=== PATIENT | female | born 1955 | race Caucasian/White ===

== ENCOUNTER → 2017-07-24 10:13 | Outpatient (CLI) | payer OTHER, SELFPAY ==
[2015-08-06 13:35] VITALS: BP 114/56
[2017-05-27 08:24] VITALS: BP 111/74; BMI 30.2
[2017-07-24 12:22] LABS: Hematocrit 41.6 % (37-47); Hemoglobin 13.4 g/dl (12.0-15.0); Mean Corp Hgb Conc 32.2 g/gl (32-36); Mean Corpuscular Hgb 30.9 pg (27.0-32.0); Mean Corpuscular Volume 96.1 fL (81-99); Mean Platelet Vol. 11.4 fl (6.2-12.0); Platelet Count 189 K/mm3 (150-450); RBC Distribution Width CV 13.6 % (11.6-14.6); RBC Distribution Width SD 47.8 fl (35.1-43.9); Red Blood Count 4.33 M/mm3 (4.2-5.4)
[2017-07-24 12:29] LABS: Scan Indicated on CBC? Y/N NO
[2017-07-24 12:43] LABS: Erythrocyte Sedimentation Rate 5 mm/hr (0-30)
[2017-07-24 13:20] LABS: ALB/GLOB Ratio 1.2 RATIO (0.9-2.4); AST(SGOT) 20 U/L (15-37); Alanine Aminotransfer ALT/SGPT 26 U/L (13-56); Albumin, Serum 3.8 g/dL (3.2-5.0); Alkaline Phosphatase 60 U/L (45-117); Anion Gap 7 (5-15); BUN 16 mg/dL (7-18); BUN/Creat Ratio 18.2 RATIO (10-20); Calcium,Total 8.7 mg/dL (8.5-10.1); Chloride 103 mmol/L (98-107); Creatinine, Serum 0.88 mg/dL (0.55-1.02); EST Glomerular Filtration Rate 70 mL/min (>60); Est Glom Filt Rate - Afr Amer 84 mL/min (>60); Globulin 3.2 g/dL (2.2-4.2); Glucose 94 mg/dL (74-106); Potassium 4.2 mmol/L (3.5-5.1); Sodium Level 138 mmol/L (136-145); T4 Free Direct 1.04 ng/dL (0.76-1.46); Thyroid Stim Hormone (TSH) 0.38 uIU/mL (0.358-3.74)
[2017-07-24 13:39] LABS: Vitamin B12 401 pg/mL (211-911)
== END ==
PROVIDERS: Family Provider Family Medicine; PCP Family Medicine; Visit Provider Family Medicine
DX: Z13.21 Encounter for screening for nutritional disorder (principal); E53.8 Deficiency of other specified B group vitamins; E03.9 Hypothyroidism, unspecified; K58.9 Irritable bowel syndrome, unspecified; F10.20 Alcohol dependence, uncomplicated
CPT/HCPCS: 36415; 80053; 82306; 82607; 84439; 84443; 85027; 85652

== ENCOUNTER → 2017-12-21 07:42 | Outpatient (CLI) | payer OTHER, SELFPAY ==
[2017-12-21 10:28] LABS: Vitamin B12 931 pg/mL (211-911); Vitamin D,25 Hydroxy 49.6 ng/mL (29.95-100.01)
[2017-12-21 10:35] LABS: T4 Free Direct 1.06 ng/dL (0.76-1.46); Thyroid Stim Hormone (TSH) 0.08 uIU/mL (0.358-3.74)
[2017-12-24 08:17] LABS: Vitamin D 1,25-Dihydroxy 74.2 pg/mL (19.9-79.3)
== END ==
PROVIDERS: Family Provider Family Medicine; PCP Family Medicine; Visit Provider Family Medicine
DX: E55.9 Vitamin D deficiency, unspecified (principal); E03.9 Hypothyroidism, unspecified
CPT/HCPCS: 36415; 82306; 82607; 82652; 84439; 84443

== ENCOUNTER → 2018-03-30 14:11 | Outpatient (CLI) | payer OTHER, SELFPAY ==
[2018-03-30 15:46] LABS: Vitamin B12 655 pg/mL (211-911)
[2018-03-30 15:49] LABS: Free T3 2.6 pg/mL (2.18-3.98); T4 Free Direct 1.26 ng/dL (0.76-1.46); Thyroid Stim Hormone (TSH) 0.02 uIU/mL (0.358-3.74)
== END ==
PROVIDERS: Family Provider Family Medicine; PCP Family Medicine; Referring Provider Family Medicine; Visit Provider Family Medicine
DX: E03.9 Hypothyroidism, unspecified (principal); E53.8 Deficiency of other specified B group vitamins
CPT/HCPCS: 36415; 82607; 84439; 84443; 84481

== ENCOUNTER → 2018-10-05 14:26 | Outpatient (CLI) | payer OTHER, SELFPAY ==
[2017-05-27 08:24] VITALS: BMI 30.2
[2018-10-05 17:52] LABS: Thyroid Stim Hormone (TSH) 1.56 uIU/mL (0.358-3.74)
== END ==
PROVIDERS: Family Provider Family Medicine; PCP Family Medicine; Referring Provider Family Medicine; Visit Provider Family Medicine
DX: E03.9 Hypothyroidism, unspecified (principal)
CPT/HCPCS: 36415; 84443

== ENCOUNTER → 2018-10-18 13:37 | Outpatient (CLI) | payer OTHER, SELFPAY ==
[2017-05-27 08:24] VITALS: BMI 30.2
[2018-10-18 15:38] LABS: Erythrocyte Sedimentation Rate 4 mm/hr (0-30)
[2018-10-18 15:41] LABS: Absolute Lymphocyte Count 2.27 X10^3/ul (0.83-4.51); Absolute Neutrophil Count 6.8 X10^3/uL (2.0-7.7); Basophil# 0.05 X10^3/uL; Basophil% 0.5 % (0-1); Eosinophil# 0.14 X10^3/uL; Eosinophils% 1.4 % (0-5); Hematocrit 41.2 % (37-47); Hemoglobin 13.5 g/dl (12.0-15.0); Lymphocyte # 2.27 X10^3/ul (4.0); Lymphocyte % 23.1 % (19-41); Mean Corp Hgb Conc 32.8 g/gl (32-36); Mean Corpuscular Hgb 31.4 pg (27.0-32.0); Mean Corpuscular Volume 95.8 fL (81-99); Mean Platelet Vol. 10.8 fl (6.2-12.0); Monocyte# 0.53 X10^3/uL; Monocyte% 5.4 % (0-10); Neutrophil # 6.79 X10^3/uL (2.7-7.7); Neutrophil % 69.3 % (47-70); Platelet Count 212 K/mm3 (150-450); RBC Distribution Width CV 12.8 % (11.6-14.6); RBC Distribution Width SD 43.1 fl (35.1-43.9); White Blood Count 9.8 K/mm3 (4.4-11.0)
[2018-10-18 15:42] LABS: POSITIVE COUNT NO; POSITIVE DIFFERENTIAL NO; POSITIVE MORPHOLOGY NO
[2018-10-18 15:57] LABS: ALB/GLOB Ratio 1.4 RATIO (0.9-2.4); AST(SGOT) 30 U/L (15-37); Alanine Aminotransfer ALT/SGPT 28 U/L (13-56); Albumin, Serum 4.1 g/dL (3.2-5.0); Alkaline Phosphatase 90 U/L (45-117); BUN 24 mg/dL (7-18); Calcium,Total 8.8 mg/dL (8.5-10.1); Chloride 102 mmol/L (98-107); Creatinine, Serum 0.86 mg/dL (0.55-1.02); EST Glomerular Filtration Rate 71 mL/min (>60); Est Glom Filt Rate - Afr Amer 86 mL/min (>60); Glucose 85 mg/dL (74-106); Protein, Total 7.1 g/dL (6.4-8.2); Sodium Level 135 mmol/L (136-145)
[2018-10-18 15:58] LABS: Anion Gap 5 (5-15)
[2018-10-20 22:07] LABS: Endomysial Antibody IgA Negative (Negative)
[2018-10-21 15:53] LABS: Deamidated Gliadin IgA 3 units (0-19); Deamidated Gliadin IgG 2 units (0-19); Immunoglobulin A 143 mg/dL (87-352); t-Transglutaminase IgA <2 U/mL (0-3)
[2018-10-28 03:06] LABS: Beef <0.10 kU/L (Class 0); Corn <0.10 kU/L (Class 0); Egg, Whole <0.10 kU/L (Class 0); Milk (Cow) <0.10 kU/L (Class 0); Peanut <0.10 kU/L (Class 0); Pork <0.10 kU/L (Class 0); Soybean <0.10 kU/L (Class 0); Wheat <0.10 kU/L (Class 0)
[2018-10-28 14:21] LABS: Chocolate <0.10 kU/L (Class 0)
== END ==
PROVIDERS: Family Provider Family Medicine; PCP Family Medicine; Referring Provider Family Medicine; Visit Provider Family Medicine
DX: K58.9 Irritable bowel syndrome, unspecified (principal)
CPT/HCPCS: 36415; 80053; 82784; 83516; 85025; 85652; 86003; 86005; 86255

== ENCOUNTER → 2018-10-25 14:05 | Outpatient (CLI) | payer OTHER, SELFPAY ==
[2017-05-27 08:24] VITALS: BMI 30.2
== END ==
PROVIDERS: Family Provider Family Medicine; PCP Family Medicine; Referring Provider Family Medicine; Visit Provider Family Medicine
DX: K58.9 Irritable bowel syndrome, unspecified (principal)
CPT/HCPCS: 82274; 83630; 87177; 87209; 87493

== ENCOUNTER → 2019-04-08 13:51 | Outpatient (CLI) | payer OTHER, SELFPAY ==
--- NOTE | 2019-04-08 13:56 | BI_ITS ---
MAMMOGRAPHY - BILATERAL DIAGNOSTIC REASON FOR EXAM: Female, 63 years old. Lower outer quadrant pain in the right breast. PERTINENT HISTORY: Mother with breast cancer. TECHNIQUE: Digital bilateral breast irma (3D mammographic acquisition) in the CC and MLO projections. 2-D mediolateral oblique (MLO) and craniocaudad (CC) views of both breasts were obtained. CAD: Full Field Digital Mammography with Computer Added Detection was performed. COMPARISON: Comparison is made with prior examination dated October 19, 2012. FINDINGS: Breast Composition: There are scattered areas of fibroglandular density. There are no dominant masses or suspicious calcifications. No other significant abnormalities are identified. There has been no significant change since the prior study. BI/DIAG MAMM W/CAD, BILAT IMPRESSION: Stable bilateral diagnostic mammogram. With the patient's history of pain in the lower outer quadrant of the right breast, correlation with ultrasound is recommended. ASSESSMENT CATEGORY: BIRADS Category 0: Incomplete. Need additional imaging evaluation. A letter regarding these results will be sent to the patient by the facility within 30 days. Approximately 10% of breast cancers are not detected by mammography. A normal mammogram should not delay biopsy of a clinically suspicious abnormality. Electronically Signed: Rock Hernandez, at 8:34 EDT , Service support ,
--- NOTE | 2019-04-08 13:56 | US_ITS ---
STUDY: ULTRASOUND BREAST - RIGHT REASON FOR EXAM: Female, 63 years old. Right breast pain. TECHNIQUE: Axial and longitudinal images of the RIGHT breast were performed with a high resolution ultrasound transducer. COMPARISON: Comparison is made with prior mammogram done earlier today. FINDINGS: RIGHT Breast: The lateral half of the right breast was examined by ultrasound. No sonographic abnormality is seen. US/Breast Limited Unilateral IMPRESSION: No sonographic abnormality is seen. ASSESSMENT CATEGORY: BIRADS Category 1: Negative. A letter regarding these results will be sent to the patient by the facility within 30 days. Electronically Signed: Rock Hernandez, at 16:01 EDT , Service support ,
== END ==
PROVIDERS: Family Provider Family Medicine; PCP Family Medicine; Referring Provider Family Medicine; Visit Provider Family Medicine
DX: Z12.31 Encounter for screening mammogram for malignant neoplasm of breast (principal); N64.4 Mastodynia; Z80.3 Family history of malignant neoplasm of breast
CPT/HCPCS: 76642; 77062; 77063; 77066; G0279

== ENCOUNTER 2020-01-07 14:22 | Emergency (ER) | payer OTHER, SELFPAY ==
[2020-01-07 14:24] VITALS: BP 140/62; PULSE 84; RESP 18; TEMP 36.3; O2SAT 97; BMI 27.9
--- NOTE | 2020-01-07 14:36 | ED.DCSUM_ITS ---
History of Present Illness Chief Complaint: Upper Extremity Injury Informant: Patient Onset: Today Current Severity: Moderate Maximum Severity: Moderate Narrative: Patient present secondary left wrist injury. She was stepping over a low fence when she caught her toe and fell. She put her left hand out to catch herself. She complains of pain to the left wrist. She did not strike her head. She is right-hand dominant. Past Medical History - Allergies and Home Meds Allergies/Adverse Reactions: Allergies procaine HCl [From Novocain] Allergy (Verified 01/07/20 14:26) Anaphylaxis codeine Adverse Reaction (Verified 01/07/20 14:26) Nausea latex Adverse Reaction (Verified 01/07/20 14:26) Rash meperidine HCl [From Demerol] Adverse Reaction (Verified 01/07/20 14:26) Nausea Penicillins Adverse Reaction (Verified 01/07/20 14:26) Other Primary Care Physician: Macho Stephenson MD [Primary Care Provider] - Prior records reviewed: Yes Lives: Spouse/ Significant Other Smoking Status: Former smoker Alcohol: Occasional Review of Systems General: Denies: Chills, Fever Eyes: Denies: Visual changes - bilaterally ENT: Denies: Bilateral ear pain Cardiovascular: Denies: Chest pain Respiratory: Denies: Dyspnea Gastrointestinal: Denies: Abdominal pain Musculoskeletal: Reports: Swelling, Extremity Pain Skin: Denies: Rash Neurological: Denies: Parasthesia, Numbness Hematologic: Denies: Easy bruising, Easy bleeding Allergy: Denies: Uticaria Physical Exam Vital Signs/Narrative: Vital Signs Temp Pulse Resp BP Pulse Ox 01/07/20 14:24 97.3 F L 84 18 140/62 H 97 Inital Vital Signs reviewed: Yes General: Well nourished, Well developed Head: Normocephalic Neck: Supple Cardiovascular: Regular rate, Regular rhythm Respiratory: No distress, CTA bilaterally Abdomen: Soft, Nontender Extremities: - - Tenderness and focal edema to the distal radius of the left up per extremity. Good hand grasp. No tenderness of the elbow or shoulder. No overlying abrasions or lacerations. Skin: Normal color Neurological: Alert, Oriented x3 Psychological: Normal affect Diagnostic/Tx/Re-eval Left wrist x-rays per my review reveal a distal radius fracture. - Medical Decision Making Patient request for ibuprofen for pain. X-rays are reviewed with her. She is placed in an AP Ortho-Glass splint. Following splint application she is good cap refill distally and can wiggle fingers. Sling will be provided and she will follow-up with Dr. Keane, on-call for orthopedics. ED Disposition - Plan for ED Patient: Disposition: Home or Assisted Living Diagnosis: Wrist fracture Instructions: ED WRIST FRACTURE General Referrals: Frank Keane MD [STAFF PHYSICIAN] - 5-7 Days
--- NOTE | 2020-01-07 15:10 | RAD_ITS ---
STUDY: X-RAY - LEFT WRIST REASON FOR EXAM: Female, 64 years old. Fall trauma TECHNIQUE: 3 view(s) of the wrist were obtained. COMPARISON: None. FINDINGS: There is an intra-articular nondisplaced fracture of the lateral corner of the radius. Remainder of the bones are intact and located. Soft tissues are unremarkable with mild overlying swelling. RAD/Wrist min 3 Views IMPRESSION: 1. Intra-articular corner fracture of the radius. Electronically Signed: Misha Francois, at 16:06 EDT Tel , Service support ,
[2020-01-07] MEDS: Ibuprofen 200 MG Tablet 400 MG PO (15:11)
== END 2020-01-07 15:50 | disposition home or self-care (01) ==
PROVIDERS: Emergency Provider Emergency Medicine; PCP Family Medicine
DX: S52.572A Other intraarticular fracture of lower end of left radius, initial encounter for closed fracture (principal); Z87.891 Personal history of nicotine dependence; W18.30XA Fall on same level, unspecified, initial encounter; Y93.01 Activity, walking, marching and hiking; Y92.89 Other specified places as the place of occurrence of the external cause; Y99.8 Other external cause status
CPT/HCPCS: 29125; 73110; 99283

== ENCOUNTER → 2020-02-06 | Outpatient (CLI) | payer OTHER, SELFPAY ==
[2020-01-07 14:24] VITALS: BMI 27.9
[2020-02-06 18:34] LABS: T4 Free Direct 1.26 ng/dL (0.76-1.46); Thyroid Stim Hormone (TSH) 5.85 uIU/mL (0.358-3.74)
== END | disposition home or self-care (01) ==
LOC: MTLAB 16:45
PROVIDERS: PCP Family Medicine; Referring Provider Family Medicine; Visit Provider Family Medicine
DX: E03.9 Hypothyroidism, unspecified (principal)
CPT/HCPCS: 36415; 84439; 84443

== ENCOUNTER → 2020-07-23 13:51 | Outpatient (CLI) | payer OTHER, SELFPAY | PROVIDERS: PCP Family Medicine; Visit Provider Family Medicine | DX: Z20.822 Contact with and (suspected) exposure to COVID-19 (principal) | CPT/HCPCS: 87635; U0005; U0003 ==

== ENCOUNTER → 2020-08-27 16:36 | Outpatient (CLI) | payer OTHER, SELFPAY ==
[2020-08-27 18:22] LABS: T4 Free Direct 1.01 ng/dL (0.76-1.46); Thyroid Stim Hormone (TSH) 0.44 uIU/mL (0.358-3.74)
== END ==
PROVIDERS: PCP Family Medicine; Referring Provider Family Medicine; Visit Provider Family Medicine
DX: E03.9 Hypothyroidism, unspecified (principal)
CPT/HCPCS: 84439; 84443

== ENCOUNTER 2020-08-28 16:08 | Outpatient (RCR) | payer OTHER, SELFPAY ==
[2020-08-28] MEDS: COVID-19 VACC, MRNA(PFIZER)/PF 30 MCG/0.3 ML SYRINGE IM (07:39)
[2020-09-18] MEDS: COVID-19 VACC, MRNA(PFIZER)/PF 30 MCG/0.3 ML SYRINGE IM (07:26)
== END 2020-11-20 23:59 ==
LOC: IMMUN 16:08
PROVIDERS: PCP Family Medicine; Referring Provider Family Medicine; Visit Provider Family Medicine
DX: Z23 Encounter for immunization (principal)
CPT/HCPCS: 0001A; 0002A; 91300

== ENCOUNTER → 2021-01-17 | Outpatient (CLI) | payer OTHER, SELFPAY ==
[2021-01-17 09:03] VITALS: BMI 30.9
[2021-01-22 09:55] LABS: HPV APTIMA, High Risk Negative (Negative)
== END | disposition home or self-care (01) ==
LOC: LABSPEC 12:04
PROVIDERS: PCP Family Medicine; Referring Provider Nurse Practitioner Women's Health; Visit Provider Nurse Practitioner Women's Health
DX: Z12.4 Encounter for screening for malignant neoplasm of cervix (principal)
CPT/HCPCS: 87624; 88175; G0145

== ENCOUNTER 2021-10-07 07:49 | Outpatient (CLI) | payer OTHER, SELFPAY ==
[2021-10-07 10:39] LABS: T4 Free Direct 1.06 ng/dL (0.76-1.46); Thyroid Stim Hormone (TSH) 0.41 uIU/mL (0.358-3.74)
== END 2021-10-07 23:59 | disposition home or self-care (01) ==
LOC: MTLAB 07:51
PROVIDERS: PCP Family Medicine; Referring Provider Family Medicine; Visit Provider Family Medicine
DX: E03.9 Hypothyroidism, unspecified (principal)
CPT/HCPCS: 36415; 84439; 84443

== ENCOUNTER → 2021-11-14 | Outpatient (CLI) | payer OTHER, SELFPAY ==
--- NOTE | 2021-11-14 14:14 | RAD_ITS ---
STUDY: X-RAY - LUMBAR SPINE REASON FOR EXAM: Female, 66 years old. strain of muscle TECHNIQUE: XR Spine Lumbar Comp W/ Bending Min 6 Views COMPARISON: None FINDINGS: Normal lumbar lordosis. There is no substantial scoliosis. There is a normal alignment of the vertebrae. Normal vertebral bodies and endplates. Normal disc space heights. The soft tissue structures are unremarkable. RAD/L/S Spine w Bend Min 6 Vw IMPRESSION: There are no acute findings. Electronically Signed: Braden Acosta MD at 19:22 EDT ,
== END | disposition home or self-care (01) ==
PROVIDERS: PCP Family Medicine; Referring Provider Family Medicine; Visit Provider Family Medicine
DX: S39.012A Strain of muscle, fascia and tendon of lower back, initial encounter (principal)
CPT/HCPCS: 72114

== ENCOUNTER → 2022-03-11 | Outpatient (CLI) | payer OTHER, SELFPAY ==
--- NOTE | 2022-03-11 08:03 | US_ITS ---
STUDY: ULTRASOUND OF THE FEMALE PELVIS - COMPLETE REASON FOR EXAM: Female, 66 years old. Pain LMP: Patient is postmenopausal. TECHNIQUE: Transvaginal TECHNICAL QUALITY: Adequate. COMPARISON: None. FINDINGS: The uterus is anteverted and is in a midline position. The uterus measures 6.1 cm x 3.7 cm x 2.4 cm. Normal uterine cervix. The endometrium is thickened and measures 3.9 mm in thickness, and is heterogeneous (striated). There is no demonstrated endometrial mass. Heterogeneous echotexture of the uterus with tiny calcifications in keeping with a fibroid change. I.U.D. - The patient does not have an I.U.D. The right ovary is visualized. The right ovary measures 1.2 cm x 1.2 cm x 0.6 cm. There is no right ovarian cyst or ovarian mass. There is no visualized right adnexal mass or complex lesion. There is normal arterial and normal venous vascularity. The left ovary is non-visualized. There is no fluid in the cul-de-sac. The pre void volume of the bladder was 58 ml. US/Transvaginal Non- IMPRESSION: Heterogeneous echotexture of the uterus suggesting fibroid change with thickening of the endometrium measuring 3.9 mm. Electronically Signed: Rock Hernandez MD at 11:18 EDT ,
== END | disposition home or self-care (01) ==
LOC: OPUS 08:01
PROVIDERS: PCP Family Medicine; Visit Provider Nurse Practitioner Women's Health
DX: Z78.0 Asymptomatic menopausal state (principal)
CPT/HCPCS: 76830

== ENCOUNTER → 2022-05-26 | Outpatient (CLI) | payer OTHER, SELFPAY ==
--- NOTE | 2022-05-26 13:13 | BI_ITS ---
MAMMOGRAPHY - BILATERAL SCREENING REASON FOR EXAM: Female, 66 years old. Routine annual screening examination. PERTINENT HISTORY: Sister with breast cancer. Mother with breast cancer. TECHNIQUE: Digital bilateral breast benoit (3D mammographic acquisition) in the CC and MLO projections. 2-D mediolateral oblique (MLO) and craniocaudad (CC) views of both breasts were obtained. CAD: Full Field Digital Mammography with Computer Added Detection was performed. COMPARISON: Comparison is made with prior examination dated 04/08/2000 and 10/19/2012. FINDINGS: Breast Composition: There are scattered areas of fibroglandular density. There are no dominant masses or suspicious calcifications. No other significant abnormalities are identified. There has been no significant change since the prior study. BI/SCRN MAMM (CAD)W/BENOIT BILAT IMPRESSION: Stable bilateral screening mammogram. Yearly follow-up mammogram recommended. (A) ASSESSMENT CATEGORY: BIRADS Category 1: Negative. A letter regarding these results will be sent to the patient by the facility within 30 days. Approximately 10% of breast cancers are not detected by mammography. A normal mammogram should not delay biopsy of a clinically suspicious abnormality. [id number] Electronically Signed: Rock Hernandez MD at 14:21 EST ,
== END | disposition home or self-care (01) ==
LOC: OPBI 13:12
PROVIDERS: PCP Family Medicine; Referring Provider Nurse Practitioner Women's Health; Visit Provider Nurse Practitioner Women's Health
DX: Z12.31 Encounter for screening mammogram for malignant neoplasm of breast (principal); Z80.3 Family history of malignant neoplasm of breast
CPT/HCPCS: 77063; 77067

== ENCOUNTER → 2022-10-07 | Outpatient (CLI) | payer OTHER, SELFPAY ==
--- NOTE | 2022-10-07 08:09 | MRI_ITS ---
EXAM: MR LEFT LOWER EXTREMITY WITHOUT INTRAVENOUS CONTRAST, FOOT CLINICAL INDICATION: LEFT FOOT PAIN,plantar pain area of distal 3rd MT TECHNIQUE: Multiplanar and multisequence MR images of the left foot without intravenous contrast. This report was created using [employer] report [employer] technology. COMPARISON: None. FINDINGS: LIGAMENTS: MEDIAL COLLATERAL: Unremarkable. Intact. LATERAL COLLATERAL: Unremarkable. Intact. LISFRANC: Sprain injury involving Lisfranc ligament manifested as altered signal although the fibers appear to be intact. TENDONS: FLEXOR: Extensor and flexor tendons are intact. EXTENSOR: Unremarkable. Intact. PERONEAL: Unremarkable. Intact. TIBIALIS ANTERIOR: Unremarkable. Intact. TIBIALIS POSTERIOR: Unremarkable. Intact. MUSCLES: Muscles are normal. FLUID: Unremarkable. No masses or organized fluid collections. PLANTAR FASCIA: Unremarkable. Intact. BONES/JOINTS: Moderate the first metatarsophalangeal joint effusion. Moderate degenerative changes of the first metatarsophalangeal joint without hallux valgus deformity. Normal forefoot alignment. No bone marrow edema. No joint effusion. No stress or traumatic fractures involving the third metatarsal or other osseous structures. OTHER SOFT TISSUES: Unremarkable. MRI/Lower Ext/No Jt/w/o IMPRESSION: Sprain injury involving Lisfranc ligament manifested as altered signal although the ligament fibers appear to be intact. No abnormal findings involving the third metatarsal to explain the clinical presentation. Moderate first metatarsophalangeal joint effusion. Electronically Signed: Glenn Pena MD at 21:50 EDT Reading Location ID and State: [address] [place] [address] Tel , Service support ,
== END | disposition home or self-care (01) ==
PROVIDERS: PCP Family Medicine; Referring Provider Podiatrist; Visit Provider Podiatrist
DX: M79.672 Pain in left foot (principal); M77.52 Other enthesopathy of left foot and ankle
CPT/HCPCS: 73718

== ENCOUNTER → 2022-11-12 | Outpatient (CLI) | payer OTHER, SELFPAY ==
[2022-11-12 16:20] LABS: ALB/GLOB Ratio 1.3 RATIO (0.9-2.4); AST(SGOT) 30 U/L (15-37); Alanine Aminotransfer ALT/SGPT 24 U/L (13-56); Albumin, Serum 3.7 g/dL (3.2-5.0); Alkaline Phosphatase 65 U/L (45-117); Anion Gap 8 (5-15); BUN 13 mg/dL (7-18); Calcium,Total 8.8 mg/dL (8.5-10.1); Chloride 104 mmol/L (98-107); Creatinine, Serum 0.93 mg/dL (0.55-1.02); EST Glomerular Filtration Rate 65 mL/min (>60); Est Glom Filt Rate - Afr Amer 78 mL/min (>60); Globulin 2.9 g/dL (2.2-4.2); Glucose 119 mg/dL (74-106); Potassium 3.9 mmol/L (3.5-5.1); Protein, Total 6.6 g/dL (6.4-8.2); Sodium Level 139 mmol/L (136-145); T4 Free Direct 1.04 ng/dL (0.76-1.46); Thyroid Stim Hormone (TSH) 0.23 uIU/mL (0.358-3.74)
== END | disposition home or self-care (01) ==
LOC: MFPLAB 11:26
PROVIDERS: PCP Family Medicine; Visit Provider Family Medicine
DX: E03.9 Hypothyroidism, unspecified (principal); K58.9 Irritable bowel syndrome, unspecified
CPT/HCPCS: 36415; 80053; 84439; 84443

== ENCOUNTER → 2022-12-03 | Outpatient (CLI) | payer MEDICARE, SELFPAY | END | disposition home or self-care (01) | PROVIDERS: PCP Family Medicine; Referring Provider Nurse Practitioner Women's Health; Visit Provider Nurse Practitioner Women's Health | DX: N89.8 Other specified noninflammatory disorders of vagina (principal) | CPT/HCPCS: 87070; 87205 ==

== ENCOUNTER → 2023-06-04 | Outpatient (CLI) | payer MEDICARE, SELFPAY ==
--- NOTE | 2023-06-04 12:31 | BI_ITS ---
MAMMOGRAPHY - BILATERAL SCREENING REASON FOR EXAM: Female, 67 years old. Routine annual screening examination. PERTINENT HISTORY: Sister with breast cancer. Mother with breast cancer. TECHNIQUE: Digital bilateral breast benoit (3D mammographic acquisition) in the CC and MLO projections. 2-D mediolateral oblique (MLO) and craniocaudad (CC) views of both breasts were obtained. CAD: Full Field Digital Mammography with Computer Added Detection was performed. COMPARISON: Comparison is made with prior study dated May 26, 2022 and April 08, 2019. FINDINGS: Breast Composition: There are scattered areas of fibroglandular density. There are no dominant masses or suspicious calcifications. No other significant abnormalities are identified. There has been no significant change since the prior study. BI/SCRN MAMM (CAD)W/BENOIT BILAT IMPRESSION: Stable bilateral screening mammogram. Yearly follow-up mammogram recommended. (A) ASSESSMENT CATEGORY: BIRADS Category 1: Negative. A letter regarding these results will be sent to the patient by the facility within 30 days. Approximately 10% of breast cancers are not detected by mammography. A normal mammogram should not delay biopsy of a clinically suspicious abnormality. [id number] Electronically Signed: Rock Hernandez MD at 13:40 EST ,
--- NOTE | 2023-06-04 12:31 | BD_ITS ---
STUDY: DUAL ENERGY X-RAY ABSORPTIOMETRY / DXA REASON FOR EXAM: Female, 67 years old. [id number] TECHNIQUE: Bone Mineral Density (BMD) measurements of lumbar spine and bilateral hips were obtained. COMPARISON: None. FINDINGS: Lumbar Spine (L1-L4): g/cm2 (0.889) / T-score (-1.2) / Z-score (0.6) Findings are suggestive of osteopenia with a low fracture risk. Left Femur Total: g/cm2 (0.782) / T-score (-1.3) / Z-score (0.0) Left Femoral Neck: g/cm2 (0.595) / T-score (-2.3) / Z-score (-0.7) Right Femur Total: g/cm2 (0.771) / T-score (-1.4) / Z-score (-0.1) Right Femoral Neck: g/cm2 (0.624) / T-score (-2.0) / Z-score (-0.5) BD/Dexa Bone Density Study IMPRESSION: The patient is considered osteopenic as outlined below according to World [employer] Organization (WHO) criteria with a high fracture risk. Reference Information: The T-score is the number of standard deviations above or below the standard which is normal for young adults at their peak bone mineral density. The World Health Organization (WHO) interprets the T-scores as follows: Above -1 Normal bone density Between -1 and -2.5 Osteopenia Equal to / or below -2.5 Osteoporosis As a practical clinical guideline, osteopenia may be graded as follows: Mild -1 through -1.5 Moderate -1.6 through -2.0 Severe -2.1 through -2.4 The Z-score is the number of standard deviations above or below age-matched controls. A Z-score of less than -1.5 would be considered abnormal. References: 1. NIH Osteoporosis and Related Bone Diseases www osteo.org 2. International Society for Clinical Densitometry www iscd.org 3. National Osteoporosis Foundation www nof.org Electronically Signed: Rock Hernandez MD at 14:42 EST ,
== END | disposition home or self-care (01) ==
LOC: OPBD 12:20
PROVIDERS: PCP Family Medicine; Referring Provider Family Medicine; Visit Provider Family Medicine
DX: Z12.31 Encounter for screening mammogram for malignant neoplasm of breast (principal); Z78.0 Asymptomatic menopausal state; Z80.3 Family history of malignant neoplasm of breast
CPT/HCPCS: 77063; 77067; 77080

== ENCOUNTER → 2024-03-15 | Outpatient (CLI) | payer MEDICARE, SELFPAY ==
[2024-03-15 15:37] LABS: Vitamin B12 818 pg/mL (211-911); Vitamin D,25 Hydroxy 39.8 ng/mL
[2024-03-15 15:40] LABS: Erythrocyte Sedimentation Rate 12 mm/hr (0-30)
[2024-03-15 15:48] LABS: Absolute Lymphocyte Count 1.68 X10^3/uL (0.83-4.51); Absolute Neutrophil Count 3.3 X10^3/uL (2.0-7.7); Basophil# 0.06 X10^3/uL; Basophil% 1.1 % (0-1); Eosinophil# 0.26 X10^3/uL; Eosinophils% 4.6 % (0-5); Hematocrit 39.1 % (37-47); Hemoglobin 12.7 g/dL (12.0-15.0); Lymphocyte # 1.68 X10^3/ul (0.83-4.51); Lymphocyte % 29.5 % (19-41); Mean Corp Hgb Conc 32.5 g/dL (32-36); Mean Corpuscular Hgb 30.3 pg (27.0-32.0); Mean Corpuscular Volume 93.3 fL (81-99); Mean Platelet Vol. 11.2 fl (6.2-12.0); Monocyte# 0.33 X10^3/uL; Monocyte% 5.8 % (0-10); NRBC Flagged by Analyzer 0 % (0-5); Neutrophil # 3.34 X10^3/uL (2.7-7.7); Neutrophil % 58.6 % (47-70); Platelet Count 229 K/mm3 (150-450); RBC Distribution Width CV 13.2 % (11.6-14.6); Red Blood Count 4.19 M/mm3 (4.2-5.4); White Blood Count 5.7 K/mm3 (4.4-11.0)
[2024-03-15 16:13] LABS: ALB/GLOB Ratio 0.9 RATIO (0.9-2.4); AST(SGOT) 34 U/L (15-37); Alanine Aminotransfer ALT/SGPT 39 U/L (13-56); Albumin, Serum 3.5 g/dL (3.2-5.0); Alkaline Phosphatase 84 U/L (45-117); Anion Gap 5 (5-15); BUN 10 mg/dL (7-18); BUN/Creat Ratio 9.6 RATIO (10-20); Calcium,Total 9.7 mg/dL (8.5-10.1); Chloride 104 mmol/L (98-107); Cholesterol 263 mg/dL (200); Creatinine, Serum 1.04 mg/dL (0.55-1.02); EST Glomerular Filtration Rate 56 mL/min (>60); Est Glom Filt Rate - Afr Amer 68 mL/min (>60); Globulin 3.7 g/dL (2.2-4.2); Glucose 95 mg/dL (74-106); High Density Lipoprotein 56 mg/dL; Protein, Total 7.2 g/dL (6.4-8.2); Sodium Level 138 mmol/L (136-145); T4 Free Direct 0.91 ng/dL (0.76-1.46); Triglycerides 170 mg/dL; Very Low Density Lipoprotein 34 mg/dL (5-40)
== END | disposition home or self-care (01) ==
LOC: MTLAB 12:38
PROVIDERS: PCP Family Medicine; Referring Provider Family Medicine; Visit Provider Family Medicine
DX: E03.9 Hypothyroidism, unspecified (principal); E55.9 Vitamin D deficiency, unspecified; E53.8 Deficiency of other specified B group vitamins; K57.92 Diverticulitis of intestine, part unspecified, without perforation or abscess without bleeding; E78.5 Hyperlipidemia, unspecified
CPT/HCPCS: 36415; 80053; 80061; 82306; 82607; 84439; 84443; 85025; 85652

== ENCOUNTER → 2024-06-09 | Outpatient (CLI) | payer MEDICARE, SELFPAY ==
--- NOTE | 2024-06-09 13:16 | BI_ITS ---
MAMMOGRAPHY - BILATERAL SCREENING 3-D TOMOSYNTHESIS REASON FOR EXAM: Female, 68 years old. screenng PERTINENT HISTORY: No significant family history. TECHNIQUE: 2-D mammograms and 3-D Tomosynthesis of the breast (s) were performed. CAD was performed. COMPARISON: 06/04/2023 FINDINGS: The breast composition is composed of scattered fibroglandular density. Scattered benign calcifications are seen. No dense spiculated masses or suspicious microcalcifications are identified. No architectural distortion is identified. There is no skin thickening or retraction. There has been no significant change since the prior study. BI/SCRN MAMM (CAD)W/BNEOIT BILAT IMPRESSION: No mammographic signs of malignancy. Routine yearly mammograms recommended. ASSESSMENT CATEGORY: BIRADS Category 1: Negative. A letter regarding these results will be sent to the patient by the facility within 30 days. FOLLOW UP RECOMMENDATION: Yearly follow up mammogram recommended. (A) Approximately 10% of breast cancers are not detected by mammography. A normal mammogram should not delay biopsy of a clinically suspicious abnormality. Electronically Signed: Sebas Barry MD at 19:27 EST ,
== END | disposition home or self-care (01) ==
LOC: OPBI 13:15
PROVIDERS: PCP Family Medicine; Referring Provider Family Medicine; Visit Provider Family Medicine
DX: Z12.31 Encounter for screening mammogram for malignant neoplasm of breast (principal)
CPT/HCPCS: 77063; 77067

== ENCOUNTER → 2024-08-31 | Outpatient (CLI) | payer MEDICARE, SELFPAY | END | disposition home or self-care (01) | LOC: MFPLAB 13:55 | PROVIDERS: PCP Family Medicine; Referring Provider Family Medicine; Visit Provider Family Medicine | DX: E03.9 Hypothyroidism, unspecified (principal) | CPT/HCPCS: 36415; 84439; 84443 ==

== ENCOUNTER → 2025-06-13 | Outpatient (CLI) | payer MEDICARE, SELFPAY ==
--- NOTE | 2025-06-13 10:24 | BI_ITS ---
EXAM: SCRN MAMM (CAD)W/BENOIT BILAT DATE: 06/13/2025 CLINICAL HISTORY: F, Age 69 y/o , SCREENING Routine screening TECHNIQUE: Procedure Code: [id number] Modality: MG Procedure: SCRN MAMM (CAD)W/BENOIT BILAT COMPARISON: Prior exam(s) dated 06/09/2024. FINDINGS: TISSUE DENSITY: There are scattered areas of fibroglandular density. Bilateral Breast Mammographic Findings: No significant masses, calcifications or other abnormalities are identified. No interval change BI/SCRN MAMM (CAD)W/BENOIT BILAT IMPRESSION: Stable screening mammogram, no suspicious findings OVERALL FINAL ASSESSMENT BI-RADS 1: NEGATIVE. RECOMMENDATION: Routine annual follow-up in 1 Year Additional Recommendation none A letter with findings and recommendations will be mailed to the patient. Reading Location: [id number]
--- NOTE | 2025-06-13 10:29 | BD_ITS ---
PROCEDURE: DEXA BONE DENSITY STUDY 06/13/2025 REASON FOR EXAM: F, age 69 y/o . Postmenopausal screening. TECHNIQUE: Procedure Code: BDDBD Modality: DX Procedure: DEXA BONE DENSITY STUDY COMPARISON: 2022 FINDINGS: BMD and T-SCORES Lumbar spine: 0.929 g/cm2, T-score -0.8 Levels: L1 through L4 Change from prior: Increase of 4.5%. Left femoral neck: 0.621 g/cm2, T-score -2.1 Femoral neck comparison data not recommended for monitoring change. Prior T-score Left total hip: 0.796 g/cm2, T-score -1.2 Change from prior: Increase of 1.7%. Right femoral neck: 0.691 g/cm2, T-score -1.4 Femoral neck comparison data not recommended for monitoring change. Prior T-score Right total hip: 0.783 g/cm2, T-score -1.3 Change from prior: Increase of 1.6%. The World Health Organization has defined the following categories based on bone density: Normal bone density: T-score equal to or greater than -1.0 Osteopenia: T-score between -1.0 and -2.5 Osteoporosis: T-score equal to or less than -2.5 FRAX (or Comparable) Fracture Risk Assessment: 10 Year Probability of Fracture: Major Osteoporotic Fracture: 18% Hip Fracture: 3.0% (Note: FRAX is not to be reported in setting of normal range bone density, osteoporosis on DEXA, known history of osteoporosis, prior osteoporotic hip or vertebral fracture, or for any patient undergoing pharmacological treatment for bone loss.) The National Osteoporosis Foundation (NOF) recommends pharmacological treatment for patients with a FRAX 10-year risk of 3% or higher for a hip fracture, or 20% or higher for a major osteoporotic fracture, to prevent osteoporosis and reduce fracture risk. The patient does not meet the pharmacological treatment recommendations for prevention of osteoporosis. BD/Dexa Bone Density Study IMPRESSION: OSTEOPENIA. Recommend follow-up as clinically warranted. Reading Location: [id number]
== END | disposition home or self-care (01) ==
LOC: OPBD 10:23
PROVIDERS: PCP Family Medicine; Referring Provider Family Medicine; Visit Provider Family Medicine
DX: Z12.31 Encounter for screening mammogram for malignant neoplasm of breast (principal); Z78.0 Asymptomatic menopausal state; Z13.820 Encounter for screening for osteoporosis; M81.0 Age-related osteoporosis without current pathological fracture
CPT/HCPCS: 77063; 77067; 77080